=== PATIENT | female | born 1955 | race Caucasian/White ===

== ENCOUNTER 2025-01-15 10:59 | Outpatient (AMB) | payer MEDICARE, SELFPAY ==
[2025-01-15 11:10] VITALS: BMI 24.2
--- NOTE | 2025-01-15 11:10 | A.SPINEOV_ITS ---
Vital Signs 01/15/25 11:10 Height 5 ft 6 in Weight 150 lb BMI 24.2 Intake Visit Reasons: lumbar radiculopathy Intake Note: Ms. Arellano is here today c/o Left sided lower back pain that runs down the leg into her ankle. Manager Of Compliance Required: No Allergies No Known Allergies Allergy (Verified 01/15/25 11:20) Physical Exam Vital Signs: BMI result Body Mass Index 24.2 Assessment & Plan Assessment & Plan (1) Lumbar radiculopathy: Code(s): M54.16 - Radiculopathy, lumbar region Category: Medical Plan Dear Dr Casey. Thank you for referring Mrs Arellano to our office today. She is a very nice 69-year-old female with history of previous L4-[address] Tracey 19 years ago with good results, presents to the office today for evaluation of left leg pain which starts in her low back radiates into her left buttock goes into her posterolateral calf in her outer ankle. She ultimately underwent an MRI showing severe stenosis at L2-3 as well as multilevel degenerative disc disease and foraminal stenosis. She does not have a component of severe back pain, the majority of her pain is in the left leg as described. He has been going on for 6 months. She tried physical therapy without any relief. She has been doing Tylenol and alleve and that helps her a little bit. She comes in today for surgical evaluation. PMH: She is a history of depression, gastroesophageal reflux, recently been having issues of the heart palpitations, she was worked up by a adjustment supervisor and told she can follow up in 6 months. She has not had any syncopal events. She is followed yearly for a CT scan for some kind of finding on her lung but it has been stable in his very small. History of hypertension, back surgery, endometriosis surgery twice, both with lower transverse abdominal incisions.. Outside of that denies any history of liver or renal disease, bleeding disorders, blood clots infections. Social hx: Quitting smoking as of today, denies any use of alcohol outside of a couple drinks daily but does smoke marijuana every night Medications: Fluoxetine, oxycodone, pantoprazole, bupropion, fenofibrate and amlodipine Allergies: None Physical exam: Walks with an antalgic gait, strength and reflexes are normal in the lower extremities, well healed scar in her low back. Imaging review: Lumbar MRI done at [facility] shows postsurgical changes at the L4-5 interbody space with solid fusion construct, pedicle screws on the left side. She has moderate to severe stenosis at L2-3 amongst other degenerative changes she also has severe disc collapse at L5-S1 with severe left L5 foraminal stenosis. Impression: 69-year-old female with a previous history of L4-[address] Tracey 19 years ago with good effect, presents now for evaluation of left L5 radiculopathy that has been going on for 6 months. She has severe left L5 foraminal stenosis. She has tried medications, physical therapy etc.. She has no interest in injections. Dr. Gamez and I reviewed her films. Although she does have stenosis at L2-3, her symptoms really do localize best to the L5 dermatome and there is severe stenosis in the foramen. He would be willing to offer her left L5 foraminotomy. This is with the understanding that if the symptoms do not go away she would need a left L5-S1 transforaminal lumbar interbody fusion. We would not choose anterior lumbar interbody fusion given her history of abdominal surgeries. The patient wishes to proceed with surgery so we have tentatively booked her for February 11. She will need to have notes from her adjustment supervisor faxed over so our anesthesia team can understand better what we should do with her perioperatively if anything. She will stop her a leave 1 week prior to surgery. The patient was given risk and benefits of surgery including but not limited to infection, hematoma, nerve injury, durotomy, weakness, bowel/bladder injury, per sistent pain,[ ]. We also discussed the option to continue with conservative treatment and patient wishes to proceed with surgery. They are aware they should stop NSAIDs 7 days prior to surgery. All questions were answered to the best of our ability. If there is anything about this patients medical history that we have overlooked or concerns you have about us proceeding with surgery we would appreciate any input you can offer Thank you for allowing us to care for your patient. The total time spent with this visit with this patient was 45 minutes reviewing history, physical exam, lumbar imaging review, and implementation of treatment plan or further diagnostic testing Tahir Gamez MD,PhD [facility] Coding Level of Care Code New Pt Level 4 (98619) Diagnoses Lumbar radiculopathy M54.16
--- OUTSIDE RECORDS SUMMARY | 2025-01-15 11:42 | XMS_ITS | Clinical Summary ---
Author Organization [facility] Address [address] [place] [address] Care Team Providers Care Construction Accountant Name Role Phone Unavailable Primary Care Provider Unavailabl e Source Comments PLEASE NOTE, if this patient is a minor, it may be UNLAWFUL to discuss sensitive information that is contained in these records (such as FAMILY PLANNING, MENTAL HEALTH or SUBSTANCE ABUSE) with the minor patient's parent or other person without the patient's specific authorization.[facility] Immunizations Immunization Administration Dates Next Due Moderna COVID-19 Vaccine, re d cap blue label, 12+ Primary Series 08/31/2020,08/03/2020 Social History Tobacco Use Types Packs/Day Years Used Date Smoking Tobacco: Never Assessed Social Connections Answer Date Recorded Social Connections and Isolation 0 08/03/2020 Financial Resource Strain Answer Date R ecorded Financial Resource Strain 0 2020 Stress Answer Date Recorded Stress 0 08/03/2020 Physical Activity Answer Date Recorded Physical Activity 0 08/03/2020 Food Insecurity Answer Date Recorded Food 0 08/03/2020 Transportation Needs Answer Date Record ed Transportation 0 08/03/2020 Housing Stability Answer Date Recorded Housing 0 08/03/2020 Safety and Environment Answer Date Giuseppe rded Safety 0 08/03/2020 Utilities Answer Date Recorded Utilities 0 08/03/2020 Employment Answer Date Recorded Employment 0 08/03/2020 Comments Unknown Sex and Gender Information Value Date Recorded Sex Assigned at Not on file Legal Sex Female 7:02 AM PDT Gender Identity Not on file Sexual Orientation Not on file Plan of Treatment Health Maintenance Due Date Last Done Comments Diabetes Screening 1955 Hepatitis C Screening 1955 Lipid Screening 1955 Tobacco Screening 1955 Hypertension Screening (#1) 07/18/1973 Imm-DTaP/Tdap/Td (1 - Tdap) 07/18/1974 Breast Cancer Screening (Mammogram) 1995 CT Colonography 07/18/2000 Colonoscopy 07/18/2000 Colorectal Cancer Screening 07/18/2000 FIT/gFOBT 07/18/2000 Fecal DNA 07/18/2000 Flexible Sigmoidoscopy 07/18/2000 Imm-Pneumococcal 50+ (1 of 1 - PCV) 07/18/2005 Imm-Zoster, Recombinant (2 of 3) 04/24/2017 02/28/20 Bone Density Screening 07/18/2020 Falls Prevention 07/18/2020 Tim-HRXNU-85 ( season) 2024//2 021, 08/03/2020 Alcohol and Drug Screen 05/20/2024 Depression Annual Screen 05/20/2024 Imm-Influenza (#1) 2025 01/27/2020, 0 02/09/2019, 01/28/2018, Additional history exists Insurance [facility]
--- OUTSIDE RECORDS SUMMARY | 2025-01-15 11:43 | XMS_ITS | Patient Health Record ---
Author Organization [facility] Address [address] [place] [address] Care Team Providers Care Pediatric Audiologist Name Role Phone Paula CATHERINE, Do Primary Care Provider Unav ailable Black, Sofia Unavailable [phone] Reason For Referral No Information Medications Medication SIG (Take, Route, Frequency, Duration) Notes Start Date End Date Status Pantoprazole Sodium 40 MG 1 tablet Orally Once a day Active Metoprolol Succinate Active oxyCODONE HCl Active Fluoxetine Active Problems Problem Type SNOMED Code ICD Code Onset Dates Problem Status W/U Status Risk Notes Problem Acquired hammer toe of left foot (8229992324324 103) Other hammer toe(s) (acquired), left foot (M20.42) Active confirmed Problem Neuralgia (18522700) Neuralgia and neuritis, unspecified (M79.2) Active confirmed Plan Of Treatment Pending Test Test Name Order Date [id number]-Rcledbxn Plate 12/07/2014 62110- Debride <25 sq cm 09/07/2014 36225- Debride <25 sq cm 12/07/2014 Insurance Providers Payer Name Payer Address Payer Phone Subscriber Number Group Number Insured Name Patient Relationship to Insured Coverage Start Date Coverage End Date Medicare National Govt Sv[employer] [address] [place] [address] [id number] Alfredo Arellano Self - patient is the insured Medical (General) History Medical History History ICD Code Back,Hip,and Knee pain Depression Mumps Joint implants/screws Surgical History Surgery Date(Month/Year) back surgery 02/2006
== END 2025-01-15 12:05 | disposition home or self-care (01) ==
LOC: HO.HNS 11:00
PROVIDERS: PCP Internal Medicine; Referring Provider Internal Medicine; Visit Provider Physician Assistant
DX: M54.16 Radiculopathy, lumbar region (principal)
CPT/HCPCS: 99204

== ENCOUNTER → 2025-01-15 10:59 | Outpatient (BNVA) | payer MEDICARE, SELFPAY | PROVIDERS: PCP Internal Medicine; Referring Provider Internal Medicine; Visit Provider Physician Assistant | DX: M54.16 Radiculopathy, lumbar region (principal) | CPT/HCPCS: 99202 ==

== ENCOUNTER → 2025-02-02 11:07 | Outpatient (BNV) | payer MEDICARE, SELFPAY | PROVIDERS: PCP Internal Medicine; Visit Provider Internal Medicine | DX: R94.31 Abnormal electrocardiogram [ECG] [EKG] (principal); Z01.810 Encounter for preprocedural cardiovascular examination | CPT/HCPCS: 93010 ==

== ENCOUNTER 2025-05-06 07:39 | Day surgery (SDC) | payer MEDICARE, SELFPAY ==
--- OUTSIDE RECORDS SUMMARY | 2025-01-22 23:59 | XMS_ITS | Continuity of Care Document ---
Author Organization [facility] Address [address] [place] [address]- Care Team Providers Care Burn Table Operator Name Role Phone Jacinto CATHERINE, Kim Aguillon Primary Care Physician [place] [facility] 12/23/24 - 01/22/25 [facility] [address] [place] [id number] Attending Physician: Darnell Smith Admitting Physician: AdmtrDarnell Referring Physician: Admtr, Ar8 Encounter Type: Triage Allergies, Adverse Reactions, Alerts No Known Allergies Immunizations Given and Recorded Vaccine Date Status Refusal Reason influenza virus vaccine, inactivated 01/28/18 Give n influenza virus vaccine, inactivated 02/28/17 Give n influenza virus vaccine, inactivated 1 01/28/17 Gi anoop influenza virus vaccine, inactivated 03/02/16 Give n influenza virus vaccine, inactivated 02/23/15 Give n influenza virus vaccine, inactivated 02/11/14 Give n influenza virus vaccine, inactivated 03/04/13 Give n influenza virus vaccine, inactivated 04/06/11 Give n Zoster Vaccine Live 2 01/28/17 Given FluLaval (oldterm) 05/28/12 Given tetanus/diphtheria/pertussis, acel(Tdap) 04/06/11 Given 1Result Comment: [02/28/2017] [facility]#[id number] 2Result Comment: [02/28/2017] [facility]#[id number] Medications amLODIPine 5 mg oral tablet 5 mg, 1, tablet, By Mouth, Daily, # 90 tablet, Refills 1, Tot. Refills 1, Maintenance, 08/29/17 11:23:57 AM EDT, Route to Pharmacy Electronically, [facility] 1966 Start Date: 08/29/17 Stop Date: 02/25/18 Status: Ordered Medication Dispense Status: Completed Quantity: 90.0 Unit: tablet Total Allowed Fills: 2 Fills Dispensed: 0 buPROPion 150 mg/24 hours (XL) oral tablet, extended release 1 tablet = 150 mg, By Mouth, Every 24 hours, # 90 tablet, 1 Refills, Maintenance, 09/04/17 11:12:07 AM EDT, ER Tablet, [facility] 1966, 1 tablet By Mouth Every 24 hours,x90 days Start Date: 09/04/17 Stop Date: 03/03/18 Status: Ordered Medication Dispense Status: Completed Quantity: 90.0 Unit: tablet Total Allowed Fills: 2 Fills Dispensed: 0 Flonase Allergy Relief 50 mcg/inh nasal spray 1 sprays = 50 mcg, Nares, Both, Daily, shake well before using, # 9.9 mL, 0 Refills, Maintenance, 12/23/24 12:30:00 PM EDT, [place], [facility]/pharmacy #[id number], Partial fill upon patient request if the prescription is for a schedule II opioid drug., 169.5, cm, 12/23/24 11:33:00 EDT, Height Start Date: 12/23/24 Status: Ordered Medication Dispense Status: Completed Quantity: 9.9 Unit: mL Total Allowed Fills: 1 Fills Dispensed: 0 Indications: Allergic rhinitis, unspecified; LORazepam 0.5 mg oral tablet See Instructions, 1 tablet by mouth 30 minutes prior to dental appointment, may repeat once prn anxiety, # 2 tablet, 0 Refills, Maintenance, 09/16/17 2:14:13 PM EDT Start Date: 09/16/17 Status: Ordered Medication Dispense Status: Completed Quantity: 2.0 Unit: tablet Total Allowed Fills: 1 Fills Dispensed: 0 meloxicam 7.5 mg oral tablet 1 tablet = 7.5 mg, By Mouth, Daily, # 30 tablet, 0 Refills, Maintenance, 11/15/17 5:31:13 PM EDT, Tablet, [facility] 1966 Start Date: 11/15/17 Status: Ordered Medication Dispense Status: Completed Quantity: 30.0 Unit: tablet Total Allowed Fills: 1 Fills Dispensed: 0 metoprolol 100 mg oral tablet, extended release 100 mg, 1, tablet, By Mouth, Daily, # 90 tablet, Refills 1, Tot. Refills 1, Maintenance, 09/04/17 11:12:05 AM EDT, Route to Pharmacy Electronically, [facility] 1967 Start Date: 09/04/17 Stop Date: 03/03/18 Status: Ordered Medication Dispense Status: Completed Quantity: 90.0 Unit: tablet Total Allowed Fills: 2 Fills Dispensed: 0 Percocet-5/325 325 mg-5 mg oral tablet See Instructions, PRN, 1 tablet By Mouth daily as needed., # 15 tablet, Refills 0, Tot. Refills 0, Maintenance, Pain, 02/10/18 6:45:41 AM EDT, Instructions Replace Required Details, Print Requisition,Tablet Start Date: 02/10/18 Status: Ordered Medication Dispense Status: Completed Quantity: 15.0 Unit: tablet Total Allowed Fills: 1 Fills Dispensed: 0 Protonix 40 mg oral delayed release tablet 1 tablet = 40 mg, By Mouth, 2 times a day, dose increase, # 180 tablet, 1 Refills, Maintenance, 09/04/17 11:12:04 AM EDT, [facility] Tablet Start Date: 09/04/17 Stop Date: 03/03/18 Status: Ordered Medication Dispense Status: Completed Quantity: 180.0 Unit: tablet Total Allowed Fills: 2 Fills Dispensed: 0 PROzac 40 mg oral capsule 1 capsule, By Mouth, Daily, # 90 capsule, 1 Refills, Maintenance, 09/04/17 11:12:06 AM EDT, Capsule,[facility] Start Date: 09/04/17 Stop Date: 03/03/18 Status: Ordered Medication Dispense Status: Completed Quantity: 90.0 Unit: capsule Total Allowed Fills: 2 Fills Dispensed: 0 sucralfate 1 gm oral tablet 1 Gm, 1, tablet, By Mouth, 4 times a day, # 120 tablet, Refills 0, Tot. Refills 0, Maintenance, 09/16/17 2:12:51 PM EDT, Route to Pharmacy Electronically, [facility] 1967 Start Date: 09/16/17 Status: Ordered Medication Dispense Status: Completed Quantity: 120.0 Unit: tablet Total Allowed Fills: 1 Fills Dispensed: 0 Problem List Condition Confirmation Course Effective Dates Status H ealth Status Informant Kang's esophagus, short segment 1 Confirmed Active Depression Confirmed Active Opiate analgesic contract exists Confirmed Active Esophageal Reflux Confirmed Active HTN - Hypertension Confirmed Active Hyperlipidemia Confirmed Active Lumbago without sciatica Confirmed Active Salpingectomy Confirmed Active 1EGD Jan 2015. Dr Peck Patient Care team information Care Team Personnel Name: Laci CATHERINE, Sultana Position: [facility] Physician - Pulm/Critical Care Member Role: Lifetime Consulting Physician Address: [address] [place] [address]- Telecom: Name: Kim Casey MD Position: [facility] Outreach Member Role: PCP Address: [address] [place] [address] PX Telecom: Care Team Related Persons Name: GEOFF CRAIG Insurance Providers [facility]or [facility] Plan Information #: 1 Payer: [employer] ADV PPO Payer Identifier: NA Member Number: [id number] Group Number: [id number] Subscriber Identifier: NA Relationship to Subscriber: self Coverage Type: Medicare PPO Coverage Verification Date: NA Telecom: NA Address: NA
--- OUTSIDE RECORDS SUMMARY | 2025-01-25 12:55 | XMS_ITS | Patient Health Record ---
Author Organization [facility] Address [address] [place] [address] Care Team Providers Care Uke Operator Name Role Phone Paula CATHERINE, Do Primary Care Provider Unav ailable Black, Sofia Unavailable [phone] Reason For Referral No Information Medications Medication SIG (Take, Route, Frequency, Duration) Notes Start Date End Date Status Pantoprazole Sodium 40 MG 1 tablet Orally Once a day Active Metoprolol Succinate Active oxyCODONE HCl Active Fluoxetine Active Problems Problem Type SNOMED Code ICD Code Onset Dates Problem Status W/U Status Risk Notes Problem Acquired hammer toe of left foot (7508309357473 103) Other hammer toe(s) (acquired), left foot (M20.42) Active confirmed Problem Neuralgia (45230617) Neuralgia and neuritis, unspecified (M79.2) Active confirmed Plan Of Treatment Pending Test Test Name Order Date [id number] Plate 12/07/2014 10485- Debride <25 sq cm 09/07/2014 78059- Debride <25 sq cm 12/07/2014 Insurance Providers Payer Name Payer Address Payer Phone Subscriber Number Group Number Insured Name Patient Relationship to Insured Coverage Start Date Coverage End Date Medicare National Govt Svcs Inc [address] [place] [address] [id number] Alfredo Arellano Self - patient is the insured Medical (General) History Medical History History ICD Code Back,Hip,and Knee pain Depression Mumps Joint implants/screws Surgical History Surgery Date(Month/Year) back surgery 02/2006
--- NOTE | 2025-02-02 | ECG_ITS ---
Test Reason : PREOP Blood Pressure : */* mmHG Vent. Rate : 94 BPM Atrial Rate : 94 BPM P-R Int : 156 ms QRS Dur : 80 ms QT Int : 366 ms P-R-T Axes : 54 6 26 degrees QTcB Int : 457 ms Normal sinus rhythm Possible Left atrial enlargement Nonspecific ST abnormality Abnormal ECG No previous ECGs available Referred By: Suly Sanchez Electronically Signed By: DERRICK KYLE
[2025-02-02 10:25] VITALS: BP 137/80; PULSE 101; RESP 17; O2SAT 96; BMI 24.0
--- NOTE | 2025-02-02 10:38 | HO.ANESPROP2 ---
HPI - Anesthesia Eval Consult details Narrative: 69yo F for Left L5 Foraminotomy, 02/11/25 No recent illness. No CP. Chronic SOLIS with 1 flight of stairs ~ 1 year. At baseline Eval'd by [facility] pulmo for abn PFTs. 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 GERD: ppi controls Quit smoking 10 days ago. Congratulated. [facility] Active Problems Active Problems: All Active Problems Lumbar radiculopathy (Acute) Past Medical History Medical History (Updated 02/02/25 @ 10:15 by Deidra Tracey RN) Endometriosis Arthritis Numbness Cough SOB (shortness of breath) On beta danelle at home Murmur Emphysema of lung Lumbago HTN (hypertension) Hyperlipidemia GERD (gastroesophageal reflux disease) Barretts esophagus Ascending aorta dilatation Depression Back pain Family History Family history of problems with anesthesia: No Surgical History Surgical History (Updated 02/01/25 @ 10:30 by Deidra Tracey RN) History of salpingectomy History of esophagogastroduodenoscopy (EGD) H/O colonoscopy History of Problems with Anesthesia: No Social History Social History Are you a primary field care coordinator to a significant other at home: No Do you presently have visiting nurse or other home services: No Patient Tobacco Use Status: Former Tobacco user Use of substances other than those prescribed or required for medical reasons: Yes Substance Use Frequency: Daily Have you been hit, kicked, punched, or otherwise hurt by someone within the past year? If so, by whom?: No Are you DNR?: No Advance Directives: No Advance Directives Information Provided: No Advance Directives on File: No Patient : No : No Meds Allergies Allergy/AdvReac Type Severity Reaction Status Date / Time No Known Allergies Allergy Verified 01/15/25 11:20 Home Medications ?Medication ?Instructions ?Recorded ?Confirmed ?Last Taken ?Type amlodipine 5 mg tablet 5 mg PO DAILY 02/01/25 02/02/25 Unknown History bupropion HCl 300 mg 24 hr tablet, 300 mg PO DAILY 02/01/25 02/02/25 Unknown History extended release fluoxetine 40 mg capsule 40 mg PO QAM 02/01/25 02/01/25 Unknown History lidocaine 5 % topical gel 1 ea topical DAILY PRN Pain 02/01/25 02/02/25 Unknown History oxycodone-acetaminophen 5 mg-325 1 tab PO Q4-6H PRN Pain 02/01/25 02/02/25 Unknown History mg tablet pantoprazole 40 mg tablet,delayed 80 mg PO DAILY 02/01/25 02/02/25 Unknown History release Exam Height,Weight and Vital Signs: Height 5 ft 6 in Weight 67.585 kg Last Vital Signs Pulse 101 H 02/02/25 10:25 Resp 17 02/02/25 10:25 BP 137/80 02/02/25 10:25 Pulse Ox 96 02/02/25 10:25 O2 Del Method Room Air 02/02/25 10:25 Pertinent Lab Results Pertinent Lab Results: Lab Results 02/02/25 Range/Units 11:36 WBC 8.8 (4.8-10.8) X10*3/uL RBC 3.89 L (4.20-5.50) X10*6/uL Hgb 12.5 (12.0-16.0) g/dl Hct 36.6 L (37.0-47.0) % MCV 94.1 (80.0-98.0) fL MCH 32.1 (27.0-33.0) pg MCHC 34.2 (31.0-35.0) g/dl RDW 13.3 (11.0-16.0) % Plt Count 298 (160-400) X10*3/uL MPV 8.4 L (9.4-12.3) fL Absolute Nucleated RBC 0.000 (0.0-0.012) X10*3/uL Nucleated RBC % (auto) 0.0 (0.0-0.2) /100WBC Sodium 141 (135-145) mmol/L Potassium 3.9 (3.3-5.1) mmol/L Chloride 105 (96-108) mmol/L Carbon Dioxide 27 (22-29) mmol/L Anion Gap 13 (12-20) BUN 13 (9-16) mg/dL Creatinine 0.57 (0.5-1.4) mg/dL Estim Creat Clear Calc 87.1 Estimated GFR > 60 Random Glucose 113 (60-115) mg/dL Calcium 9.7 (8.4-10.2) mg/dL Narrative Narrative: EKG 01/2025 Vent. Rate : 94 BPM Atrial Rate : 94 BPM P-R Int : 156 ms QRS Dur : 80 ms QT Int : 366 ms P-R-T Axes : 54 6 26 degrees QTcB Int : 457 ms Normal sinus rhythm Possible Left atrial enlargement Nonspecific ST abnormality Abnormal ECG No previous ECGs available PFTs: Spirometry is normal.?Lung volumes are normal.?The diffusing capacity is moderately reduced. 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 CT chest low dose in August 2024 showed ?New 5.3 mm average diameter right upper lobe solid nodule, stable perifissural nodule.?Worsened subpleural fibrotic interstitial lung abnormality. ECHO 2023 Airway Denture: Upper Partial: Lower Loose/Missing/Broken Teeth: Yes (~#22 broken) Heart: RRR Lungs: CTAB Assessment and Plan Assessment Anesthesia Assessment: Anesthesia Plan Discussed, Smoking Cess. Discussed and PAT Visit Final Anesthetic Review Family History of Problems with Anesthesia: No History of Problems with Anesthesia: No
[2025-02-02 12:03] LABS: Hematocrit 36.6 % (37.0-47.0); Hemoglobin 12.5 g/dl (12.0-16.0); Mean Corpuscular HGB Conc 34.2 g/dl (31.0-35.0); Mean Corpuscular Hemoglobin 32.1 pg (27.0-33.0); Mean Corpuscular Volume 94.1 fL (80.0-98.0); NRBC Abs Auto 0.000 X10*3/uL (0.0-0.012); NRBC Pct Auto 0.0 /100WBC (0.0-0.2); Platelet Count 298 X10*3/uL (160-400); Red Blood Count 3.89 X10*6/uL (4.20-5.50); White Blood Count 8.8 X10*3/uL (4.8-10.8)
[2025-02-02 12:41] LABS: Anion Gap 13 (12-20); Blood Urea Nitrogen 13 mg/dL (9-16); Calcium 9.7 mg/dL (8.4-10.2); Carbon Dioxide 27 mmol/L (22-29); Chloride 105 mmol/L (96-108); Creatinine Clr Calc Pharmacy 87.1; Estimated Glomerular Filt Rate > 60; Potassium 3.9 mmol/L (3.3-5.1); Sodium 141 mmol/L (135-145)
--- NOTE | 2025-05-03 12:04 | HO.ANESPROP2 ---
Documented by User: Suly Sanchez NP 05/03/25 12:21 HPI - Anesthesia Eval Consult details Narrative: 69yo F for Left L5 Foraminotomy Previously scheduled 01/2025 - resched d/t insurance Follows [facility]. Last office visit 12/2024 for pulmonary nodule noted on LDCT in August of 2024 as well as abnormal PFT's (isolated reduction of DLCO). ...subpleural reticulations concerning for early ILD on the LDCT as well as a 5.3 mm RUL nodule.? We will repeat a HRCTA in 6 months to evaluate both the nodule and her ILD. [facility] Active Problems Active Problems: All Active Problems Lumbar radiculopathy (Acute) Past Medical History Medical History Endometriosis Arthritis Numbness Cough SOB (shortness of breath) On beta danelle at home Murmur Emphysema of lung Lumbago HTN (hypertension) Hyperlipidemia GERD (gastroesophageal reflux disease) Barretts esophagus Ascending aorta dilatation Depression Back pain Family History Family history of problems with anesthesia: No Surgical History Surgical History History of salpingectomy History of esophagogastroduodenoscopy (EGD) H/O colonoscopy History of Problems with Anesthesia: No Social History Social History Are you a primary field care manager to a significant other at home: No Do you presently have visiting nurse or other home services: No Patient Tobacco Use Status: Former Tobacco user Use of substances other than those prescribed or required for medical reasons: Yes Substance Use Frequency: Daily Have you been hit, kicked, punched, or otherwise hurt by someone within the past year? If so, by whom?: No Are you DNR?: No Advance Directives: No Advance Directives Information Provided: Yes Advance Directives on File: No Patient : No : No Meds Allergies Allergy/AdvReac Type Severity Reaction Status Date / Time No Known Allergies Allergy Verified 01/15/25 11:20 Home Medications ?Medication ?Instructions ?Recorded ?Confirmed ?Last Taken ?Type amlodipine 5 mg tablet 5 mg PO DAILY 02/01/25 02/02/25 05/06/25 History bupropion HCl 300 mg 24 hr tablet, 300 mg PO DAILY 02/01/25 02/02/25 05/06/25 History extended release fluoxetine 40 mg capsule 40 mg PO QAM 02/01/25 02/01/25 05/06/25 History oxycodone-acetaminophen 5 mg-325 1 tab PO Q4-6H PRN Pain 02/01/25 02/02/25 05/06/25 History mg tablet pantoprazole 40 mg tablet,delayed 80 mg PO DAILY 02/01/25 02/02/25 05/06/25 History release Exam Height,Weight and Vital Signs: Height 5 ft 6 in Weight 67.585 kg Last Vital Signs Pulse 101 H 02/02/25 10:25 Resp 17 02/02/25 10:25 BP 137/80 02/02/25 10:25 Pulse Ox 96 02/02/25 10:25 O2 Del Method Room Air 02/02/25 10:25 Pertinent Lab Results Pertinent Lab Results: Laboratory Tests 02/02/25 11:36 WBC 8.8 RBC 3.89 L Hgb 12.5 Hct 36.6 L MCV 94.1 MCH 32.1 MCHC 34.2 RDW 13.3 Plt Count 298 MPV 8.4 L Absolute Nucleated RBC 0.000 Nucleated RBC % (auto) 0.0 Sodium 141 Potassium 3.9 Chloride 105 Carbon Dioxide 27 Anion Gap 13 BUN 13 Creatinine 0.57 Estim Creat Clear Calc 87.1 Estimated GFR > 60 Random Glucose 113 Calcium 9.7 Narrative Narrative: ECHO 03/2025 Summary 1) The LV systolic function is vigorous. The left ventricular ejection fraction is 65-70% by visual assessment. There are no regional wall motion abnormalities. 2) The left ventricular wall thickness is mildly increased. 3) The right ventricle is normal in size and function. 4) The left atrium is moderately dilated. 5) The aortic valve is trileaflet. There is no aortic stenosis. There is trace aortic regurgitation. EKG 01/2025 Vent. Rate : 94 BPM Atrial Rate : 94 BPM P-R Int : 156 ms QRS Dur : 80 ms QT Int : 366 ms P-R-T Axes : 54 6 26 degrees QTcB Int : 457 ms Normal sinus rhythm Possible Left atrial enlargement Nonspecific ST abnormality Abnormal ECG No previous ECGs available PFTs: Spirometry is normal.?Lung volumes are normal.?The diffusing capacity is moderately reduced. 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 Chest CT 02/2025 IMPRESSION: 1. Compared to 09/08/2024, decreased by 9 mm average diameter solid nodule right upper lobe previously 5.3 mm. Unchanged 7 mm fissural nodule right middle lobe. No new or enlarging suspicious nodule. LungRad Category: 2 Benign Appearance or Behavior. Pulmonary nodules with a very low likelihood of becoming a clinically active cancer due to size or lack of growth. Continue annual screening with LDCT in 12 months. 2. S : Significant additional findings likely require further evaluation. Fibrotic interstitial lung disease. Assessment and Plan Assessment Anesthesia Assessment: Chart Reviewed Final Anesthetic Review Family History of Problems with Anesthesia: No History of Problems with Anesthesia: No Documented by User: Tavia Vega MD 05/06/25 09:45 PMFSH Past Medical History Medical History Endometriosis Arthritis Numbness Cough SOB (shortness of breath) On beta danelle at home Murmur Emphysema of lung Lumbago HTN (hypertension) Hyperlipidemia GERD (gastroesophageal reflux disease) Barretts esophagus Ascending aorta dilatation Depression Back pain Surgical History Surgical History History of salpingectomy History of esophagogastroduodenoscopy (EGD) H/O colonoscopy Social History Social History Are you a primary field care manager to a significant other at home: No Do you presently have visiting nurse or other home services: No Patient Tobacco Use Status: Former Tobacco user Use of substances other than those prescribed or required for medical reasons: Yes Substance Use Frequency: Daily Have you been hit, kicked, punched, or otherwise hurt by someone within the past year? If so, by whom?: No Are you DNR?: No Advance Directives: No Advance Directives Information Provided: Yes Advance Directives on File: No Patient : No : No Meds Allergies Allergy/AdvReac Type Severity Reaction Status Date / Time No Known Allergies Allergy Verified 01/15/25 11:20 Home Medications ?Medication ?Instructions ?Recorded ?Confirmed ?Last Taken ?Type amlodipine 5 mg tablet 5 mg PO DAILY 02/01/25 02/02/25 05/06/25 History bupropion HCl 300 mg 24 hr tablet, 300 mg PO DAILY 02/01/25 02/02/25 05/06/25 History extended release fluoxetine 40 mg capsule 40 mg PO QAM 02/01/25 02/01/25 05/06/25 History oxycodone-acetaminophen 5 mg-325 1 tab PO Q4-6H PRN Pain 02/01/25 02/02/25 05/06/25 History mg tablet pantoprazole 40 mg tablet,delayed 80 mg PO DAILY 02/01/25 02/02/25 05/06/25 History release Exam Airway Mallampati Class: II TM Dist: >3cm Neck ROM: Full Heart: rrr Lungs: cta Assessment and Plan Assessment Anesthesia Assessment: Anesthesia Plan Discussed Final Anesthetic Review NPO: Yes ASA Class: II Final Preanesthetic Review: No Changes in Pt Med Stat, Meds/Allgs Chart Reviewed, Consent Obtained/Reviewed and Anes Risks/Benef Reviewed Patient Risk: Intermediate Procedure Risk: Intermediate Anesthetic Plan Anesthetic Plan: GA and Agree w/ Assess. and Plan Disposition: Standard PACU
[2025-05-06] VITALS (10 sets, daily range): BP systolic 115–155; BP diastolic 61–81; PULSE 79–91; RESP 15–18; TEMP 36.3–37.2; O2SAT 90–100; BMI 24.3
--- NOTE | ~2025-05-06 | FL_ITS ---
EXAMINATION: XR FLUOROSCOPY WITH IMAGES CLINICAL INFORMATION: Left L5 foraminotomy. COMPARISON: None available. TECHNIQUE: Fluoroscopy time: 4.6 seconds DAP: 1.5 mGy Images: 1 FINDINGS: Fluoroscopy provided for surgery. Single spot image demonstrates posterior spinal fusion hardware at L4-5. Surgical instruments projected posterior to the spine.. No radiologist present. FL/FL guidance in OR IMPRESSION: Fluoroscopy provided for procedure. See surgical report for details. Electronically signed by: Felix Gandara MD 05/06/2025 04:36 PM EST
[2025-05-06] MEDS: Lactated Ringers 1,000 ML 100 ML IVCONT (08:08)
--- NOTE | 2025-05-06 11:19 | MHC.SHP ---
Pre-Procedural Eval Section A - 24 Hr Update-Section A only Date of Service: 05/06/25 The patient is an INPATIENT: No Section B - Complete if H&P > 30 days Chief Complaint: Radiculopathy, lumbar region Details of Present Illness: Left lumbar radiculopathy Allergies: Allergies Allergy/AdvReac Type Severity Reaction Status Date / Time No Known Allergies Allergy Verified 01/15/25 11:20 Review of Systems Sugical H&P ROS: Negative: Constitution, Cardiovascular, Respiratory, Neurological, Psychiatric, Hem-Onc, Allergic/Immunologic, Gastrointestinal, Genitourinary, Musculoskeletal, Integumentary, Endocrine and Eyes/Ears/Nose/Throat Exam Surgical H&P Exam: Normal: HEENT, Normal: Heart, Normal: Lungs, Normal: Extremities, Normal: Abdomen, Normal: Skin and Normal: Neurological Plan Diagnosis/Plan: Unchanged I have reviewed the history and physical and performed a pertinent physical examination on my patient. No changes have occurred unless specified. Left L5 foraminotomy Time Spent With Patient Time: Total time managing care of this patient today _5___ minutes.
--- NOTE | 2025-05-06 11:24 | P.DS_ITS ---
DS: Providers Provider Date of admission: 04/06/2026 Date of discharge: 05/06/25 Primary care physician: Kim Casey MD Admitting clinician: Kev Gamez DS: Diagnosis Discharge Diagnosis (1) Lumbar radiculopathy: Status: Acute DS: Summary Time Attestation Discharge Coordination Time (in mins): 5 Quality: Safe Use of Opioids Does Pt have an Active Cancer Diagnosis on the Problem List?: No Quality: Stroke Does the patient have a stroke diagnosis?: No Physical Exam Vital Signs: Vital Signs: Last Vital Signs Temp 98.5 F 05/06/25 08:15 Pulse 87 05/06/25 08:15 Resp 18 05/06/25 08:15 BP 155/81 H 05/06/25 08:15 Pulse Ox 95 05/06/25 08:15 O2 Del Method Room Air 05/06/25 08:15 BMI result Body Mass Index 24.3 Discharge Plan Discharge Patient Disposition: Home, Self-Care Referrals: Kim Casey MD [Primary Care Provider, Medical] - 1 Week Discharge Medications: Continued fluoxetine 40 mg capsule 40 mg PO QAM amlodipine 5 mg tablet 5 mg PO DAILY oxycodone-acetaminophen 5-325 mg tablet 1 tab PO Q4-6H PRN (Reason: Pain) pantoprazole 40 mg tablet,delayed release (DR/EC) 80 mg PO DAILY bupropion HCl 300 mg tablet extended release 24 hr 300 mg PO DAILY Discharge Orders: Discharge Order (Routine); Ordered 05/06/25 Ordered By: Tahir Bowen Diet: Advance to usual diet Activity on Discharge: As tolerated Activity Restrictions/Additional Instructions: After your spinal surgery we ask you to observe the following restrictions/guidelines: Activity: It is normal to feel some discomfort as you increase your activity, but that will improve with time. We ask you avoid heavy lifting or acitivities that cause pain. As a general rule, 8lbs is a safe limit for lifting right after surgery. Walk as much as you feel comfortable but not to exhaustion. You will feel extra tired the first few days after surgery. Stay well hydrated. It is OK to walk up and down stairs You may return to driving when you are off narcotics (such as vicodin, oxycodone, dilaudid, etc), and you are back to normal functional capacity. If you have any concerns please check with office before driving. Return to work is specific to each patient and each surgery, so please speak with your doctor/PA at first follow up. Please bring paperwork such as FMLA at that time if you need it filled out. Medications: For optimum pain control, it is best to start with a combination of 500 mg of Tylenol every 4 hours with 600 mg of Motrin every 8 hours, and use narcotics as needed in between for breakthrough pain. We will give you a short supply of narcotics after surgery (usually one weeks worth). If you need more please call the office but do not use more than prescribed. You will need to give our office 48 hours notice if you need narcotics refilled and we do not fill narcotics on weekends or evenings. If you are on a narcotic, it is a good idea to take a stool softener such as colace or senna to avoid constipation If you take blood thinner such as aspirin, Plavix, Coumadin, Effient, Eliquis etc for conditions such as Afib, DVT, Pulmonary embolus, coronary disease, stents etc please speak with your surgeon about specific details as to when you can resume these medications. Follow up: Please call the office, , after surgery to arrange a 3 week follow up for wound check. Wound Care: You may remove your dressing on the first day after surgery. ?You may ?leave open to air. Please do not remove the steri strips underneath. they will fall off on their own in one week. IT IS NORMAL FOR THE WOUND TO OOZE OR BE BLOODY FOR A FEW DAYS AFTER SURGERY. ?IF THIS HAPPENS JUST PLACE NEW DRESSING OVER IT TO AVOID STAINING CLOTHES. You may shower on post op day # 1 We ask that you do not let the water soak the wound. If it does get wet, just towel dry lightly. Please do not scrub your incision or place any type of chemical/ointment on the wound. No tub baths, pools or jacuzzis for one month. If you have any leaking or redness from your wound, or fevers, please call office Print Language: Peruvian
--- NOTE | 2025-05-06 12:59 | W.PM.OPN ---
Operative Note Operative Note Date of Service: 05/06/25 Narrative: Preoperative Diagnosis: Spinal stenosis/lateral recess stenosis/neural foraminal stenosis Operation: Left L5 Laminotomy, Partial facetectomy and foraminotomy with use of microscope Consent Informed Consent was obtained for this operation. I have explained the nature, purpose and benefits of the operation. I have discussed the risks and benefit of the operation including possible complications or adverse events with patient/family. Alternative(s) were discussed with the patient with their relative benefits and risks as well as the consequences of not accepting the operation were included in obtaining consent. Surgeon: GALILEA IBARRA MD, PHD Procedure Assisted By: sj Mcgill Description of Procedure This patient is status post L4-5 fusion [facility]. She has a left L5 radiculopathy due to severe L5 neuroforaminal stenosis. The patient was offered a decompression of the nervous structures. The procedure complications were explained. The patient was consented. The patient was brought to the operating room and endotracheally intubated. The patient was turned in prone position on the Wilfred frame. Prep and drape was done followed by timeout. Physician assistant financial accountant provided access. A mid lumbar incision was made followed by release of the paravertebral muscle on the left side to expose the L5 lamina and facet joint. An intraoperative x-ray was obtained to confirm the correct level. The microscope was brought in. I took over the procedure. I was able to immediately identify the previous laminectomy and dura. A straight correct was used to create a plane between the dura and the facet joint.With a nerve hook the medial wall of the L5 pedicle was palpated as well as the beginning of the L5 foramen. The facet joint was partially drilled down after which with a #2 Kerrison a foraminotomy was done. Finally a foraminotomy Kerrison was used to complete the foraminotomy. A long nerve hook could be easily passed lateral and dorsally from the nerve root, a sign of relief of the neuroforaminal stenosis and decompression of the nerve root . The microscope was removed. Hemostasis was done. Incision was closed in 2 layers. Steri-Strips were used to approximate incision. An OpSite with Tegaderm was used to cover the incision. All sponge needle counts were correct. Patient was extubated and transported in stable is to recovery room. Anesthesia: General Estimated Blood Loss (ml): Minimal Duration of Surgery: 45 Minutes Postoperative Plan: Discharge to home
== END 2025-05-06 15:28 | disposition home or self-care (01) ==
PROVIDERS: Nurse Practitioner; PCP Internal Medicine; Visit Provider Neurological Surgery
PROC: (CPT 63047; principal; 2025-05-06 10:10)
DX: M54.16 Radiculopathy, lumbar region (principal); M48.062 Spinal stenosis, lumbar region with neurogenic claudication; Z98.1 Arthrodesis status; I10 Essential (primary) hypertension; F32.A Depression, unspecified; Z79.899 Other long term (current) drug therapy; F12.90 Cannabis use, unspecified, uncomplicated; Z87.891 Personal history of nicotine dependence; Z98.890 Other specified postprocedural states
CPT/HCPCS: 63047; 36415; 80048; 85027; 93005; J0131; J0690; J1100; J1885; J2003; J2250; J2405; J2704; J3010

== ENCOUNTER → 2025-05-06 07:39 | Outpatient (BNV) | payer MEDICARE, SELFPAY | PROVIDERS: PCP Internal Medicine; Visit Provider Neurological Surgery | DX: M54.16 Radiculopathy, lumbar region (principal) | CPT/HCPCS: 63047; 99499 ==